=== PATIENT | male | born 1995 | race Two or more races ===

== ENCOUNTER 2018-03-08 10:59 | Emergency (ER) | payer MEDICAID ==
[~2018-03-08] VITALS: Ht 177.8 cm; Wt 102.3 kg
[2018-03-08 11:06] VITALS: BP 133/71
== END 2018-03-08 12:50 | disposition home or self-care (01) ==
LOC: ED 11:30
DX: S50.01XA Contusion of right elbow, initial encounter (principal); S60.221A Contusion of right hand, initial encounter; W22.8XXA Striking against or struck by other objects, initial encounter; Y93.83 Activity, rough housing and horseplay; Y92.098 Other place in other non-institutional residence as the place of occurrence of the external cause; Y99.8 Other external cause status
CPT/HCPCS: 29130; 99284